=== PATIENT | female | born 1935 | race Caucasian/White ===

== ENCOUNTER → 2016-11-18 | Outpatient (CLI) | payer MEDICARE, OTHER ==
--- NOTE | 2016-11-18 15:57 | US ---
EXAMINATION TYPE: US venous doppler duplex LE RT DATE OF EXAM: 11/18/2016 3:42 PM COMPARISON: NONE CLINICAL HISTORY: I80.9 Phlebitis and thrombophlebitis of right leg. Swelling in right leg for months , no h/o dvt SIDE PERFORMED: Right TECHNIQUE: The lower extremity deep venous system is examined utilizing real time linear array sonog payton with graded compression, doppler sonography and color-flow sonography. VESSELS IMAGED: External Iliac Vein (EIV) Common Femoral Vein Deep Femoral Vein Greater Saphenous Vein * Femoral Vein Popliteal Vein Small Saphenous Vein * Proximal Calf Veins (* superficial vessels) Right Leg: Appears negative for DVT Grayscale, color doppler, spectral doppler imaging performed of the deep veins of the lower extremiti es. There is normal flow, compressibility, vascular waveforms bilaterally. IMPRESSION: No ultrasound evidence for acute DVT in the right lower extremity.
== END | disposition home or self-care (01) ==
LOC: RADUSMAIN 15:22
PROVIDERS: ATTEND Physical Medicine & Rehabilitation
DX: M54.5 Low back pain (principal); M79.669 Pain in unspecified lower leg; I80.9 Phlebitis and thrombophlebitis of unspecified site

== ENCOUNTER 2018-12-10 10:20 | Day surgery (SDC) | payer MEDICARE, OTHER ==
[2018-12-07 18:08] VITALS: BMI 21.9
[~2018-12-10 10:20] MED LIST: HYDROmorphone 0.5 MG/0.5 ML SYRINGE IVP PRN; LACTATED RINGERS 1,000 ML IV SCH; MIDAZOLAM 2 MG/2 ML VIAL IV PRN; ONDANSETRON 4 MG/2 ML VIAL IVP ONE; ceFAZolin IN SWFI 2 GM/20 ML SYRINGE IVP ONE
[2018-12-10] MEDS ORDERED: LIDOCAINE 1% 20 ML VIAL (10MG/ML) FOR IV START INTRADERMA ONE ×2 (10:55→11:01)
[2018-12-10] MEDS ORDERED: fentaNYL (PF) 50 MCG/ML 2 ML AMP IV ONE (11:00)
[2018-12-10] MEDS ORDERED: PROPOFOL 10 MG/ML 20 ML VIAL IV ONE (11:54)
[2018-12-10] MEDS ORDERED: ePHEDrine SULFATE/0.9% NACL/PF 50 MG/5 ML SYRINGE IV ONE (11:54)
[2018-12-10] MEDS ORDERED: PHENYLEPHRINE-0.9% NACL SYG 1 MG/10 ML SYRINGE ONE (11:54)
[2018-12-10] MEDS ORDERED: LIDOCAINE 1% INJ 10MG/ML (20 ML MDV) ONE (11:54)
[2018-12-10] MEDS ORDERED: fentaNYL (PF) 50 MCG/ML 2 ML AMP ONE (11:54)
--- NOTE | 2018-12-10 13:15 | P.ONQ ---
Anesthesiology Proc Note - PNB - Peripheral Nerve Block Performed Right Supraclavicular Single Procedure Start Time: 11:00 Procedure Stop Time: 11:05 Indication: Acute Post-Operative Pain Sedation Type: Sedate with meaningful contact maintained Preparation: Sterile Dressing Position: Supine Catheter: None Needle Types: On-Q Needle Size: 50mm (2") Needle Gauge: 21 Technique: Ultrasound Injectate: 0.5% Ropivacaine (see comment for volume) (ml)
[2018-12-10] MEDS ORDERED: BUPIVACAINE (PF) 0.5% 30 ML VIAL SQ ONE (13:45)
[2018-12-10] MEDS ORDERED: LIDOCAINE 1%-EPI 1:100,000 20 ML VIAL SQ ONE (13:45)
--- NOTE | 2018-12-10 13:59 | FL ---
Fluoroscopy INDICATION: Pain FINDINGS: Fluoroscopy time: 17 seconds. Images obtained: 5. IMPRESSIONS: 1. Documentation of fluoroscopy.
[2018-12-10 14:23] VITALS: TEMP 99
[2018-12-10 14:49] VITALS: RESP 18
[2018-12-10 15:19] VITALS: BP 127/76; PULSE 91
--- NOTE | 2018-12-10 18:30 | P.OP ---
Date of Procedure: 12/10/18 Preoperative Diagnosis: Displaced right distal radius fracture Postoperative Diagnosis: Displaced right distal radius fracture Procedure(s) Performed: Open reduction and internal fixation of displaced, intra-articular right distal radius fracture (3 parts) Implants: Acumed Acu-Loc2 locking volar distal radius plate, narrow left with locking and cortical screws Anesthesia: GETA, regional, local Surgeon: Josh Hemphill Housing Officer #1: Joana Brown Estimated Blood Loss (ml): 3 Pathology: none sent Condition: stable Disposition: PACU Indications for Procedure: The patient is a 83-year-old female who sustained a displaced distal radius fracture. Treatment options (and associated risks and benefits) were discussed in the office. Surgical treatment was recommended. In preop, the patient denied any additional questions or concerns and wished to proceed with surgery. Consent forms were signed. The operative site was confirmed and marked. Description of Procedure: The patient was administered a regional nerve block by the anesthesia team then brought to the operating suite. The patient was positioned supine with the operative limb on an arm board. All bony prominences were well padded. An esthesia was administered uneventfully. Prophylactic IV antibiotics were administered. A tourniquet was placed on the right arm which was then prepped and draped in standard, sterile fashion. A timeout was performed which confirmed the patient, the operative side, the site and the procedure to be performed. All team members expressed agreement. The limb was exsanguinated with an Esmarch and the tourniquet was inflated. A standard volar FCR approach was utilized. The skin was incised sharply and the subcutaneous tissue were spread, coagulating superficial vessels as needed. The FCR sheath was incised and the tendon was mobilized. The radial artery was identified and protected throughout the case. Blunt dissection was used and the pronator quadratus was identified. This was sharply released along its radial border and & elevated ulnarly. The fracture site was identified. There was a transverse fracture across the metaphysis. There was a separate intra-articular fracture extending into the lunate fossa and comprising a large portion of the volar ulnar corner of the radiocarpal joint. A manual reduction was performed and good provisional alignment was confirmed on orthogonal imaging. The plate was selected, based on the patients anatomy and fracture pattern, and was positioned on the volar radius. Using the plate as a reduction tool, the fracture was re-reduced and held in position. It was provisionally pinned in place with K-wires and its position was confirmed on imaging. A cortical screw was drilled, measured and inserted into the oblong hole of the shaft. Locking screws were drilled, measured and inserted distally, confirming length and trajectory with fluoroscopy. The provisional K-wires were removed. An additional cortical screw was drilled and inserted to further secure the plate to the metaphysis. Final x-rays were obtained which revealed satisfactory reduction of the fracture. A 20-degree inclined lateral view was obtained to confirm extra-articular screw placement. The wrist was then ranged under live fluoroscopy - no motion of the fracture fragments or fixation construct was appreciated. The tourniquet was released and hemostasis was obtained with electrocautery. The wound was thoroughly irrigated with normal saline. The pronator was repaired with interrupted 3-0 Vicryl sutures. The incision was closed with 4-0 nylon suture. Local anesthetic with epinephrine was injected into the perioperative subcutaneous tissues for adjunctive postoperative pain control and hemostasis. A sterile dressing was applied followed by a resting volar splint. All sponge, needle and instrument counts were correct at the end of the case. The patient tolerated the procedure well and was taken to the recovery room in stable condition.
== END 2018-12-10 15:43 | disposition home or self-care (01) ==
LOC: OR 10:20
PROVIDERS: ATTEND Orthopaedic Surgery
DX: S52.591A Other fractures of lower end of right radius, initial encounter for closed fracture (principal); I25.10 Atherosclerotic heart disease of native coronary artery without angina pectoris; I25.2 Old myocardial infarction; I12.9 Hypertensive chronic kidney disease with stage 1 through stage 4 chronic kidney disease, or unspecified chronic kidney disease; N18.3 Chronic kidney disease, stage 3 (moderate); D63.1 Anemia in chronic kidney disease; E07.9 Disorder of thyroid, unspecified; I34.0 Nonrheumatic mitral (valve) insufficiency; E78.2 Mixed hyperlipidemia; Z85.53 Personal history of malignant neoplasm of renal pelvis; Z85.3 Personal history of malignant neoplasm of breast; Z95.5 Presence of coronary angioplasty implant and graft; W01.0XXA Fall on same level from slipping, tripping and stumbling without subsequent striking against object, initial encounter; Y93.H2 Activity, gardening and landscaping; Y92.89 Other specified places as the place of occurrence of the external cause; Z79.891 Long term (current) use of opiate analgesic; Z79.899 Other long term (current) drug therapy; Z79.890 Hormone replacement therapy; Y99.8 Other external cause status; Z90.5 Acquired absence of kidney; Z91.040 Latex allergy status; Z79.82 Long term (current) use of aspirin; Z88.5 Allergy status to narcotic agent; Z88.8 Allergy status to other drugs, medicaments and biological substances
CPT/HCPCS: 84132; 73100; 25609; 64415; C1713; J2405; J2001; J3010; J2370; J2704; J0690

== ENCOUNTER 2019-03-03 05:52 | Inpatient (IN) | payer MEDICARE, OTHER ==
[2019-02-28 16:12] VITALS: BMI 22.8
[2019-03-03] MEDS ORDERED: NITROGLYCERIN SL TABS 0.4 MG TAB SUBLINGUAL PRN (06:25)
[2019-03-03] MEDS ORDERED: ALPRAZolam 0.5 MG TAB PO PRN (06:25)
[2019-03-03] MEDS ORDERED: ASPIRIN 325 MG TAB PO STA (06:25)
[2019-03-03] MEDS ORDERED: CLOPIDOGREL 75 MG TAB PO STA (06:25)
[2019-03-03] MEDS ORDERED: ALPRAZolam 0.25 MG TAB PO PRN (06:25)
[2019-03-03] MEDS ORDERED: SODIUM CHLORIDE 0.9% 1,000 ML in EMPTY BAG 1 BAG IV ONE (06:25)
[2019-03-03 07:10] VITALS: RESP 18; TEMP 98.2
[2019-03-03] MEDS ORDERED: LIDOCAINE 1% INJ 10MG/ML (20 ML MDV) SQ ONE (09:59)
[2019-03-03] MEDS ORDERED: IOPAMIDOL-250 100ML BTL INTRAARTER ONE (10:48)
[2019-03-03] MEDS ORDERED: SODIUM CHLORIDE 0.9% 1,000 ML IV SCH (11:00)
--- NOTE | 2019-03-03 11:16 | AN ---
ANGIOGRAPHY REPORT DATE OF SERVICE: March 03, 2019 PERFORMING PHYSICIAN: Dony Clark MD, playground supervisor. PROCEDURE PERFORMED: 1. An aortic arch angiogram. 2. Bilateral carotid angiogram. 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 She was brought today to undergo right carotid stenting. APPROACH: Right common femoral artery. COMPLICATION: None. LEVEL OF SEDATION: Moderate with sedation length of 42 minutes. PROCEDURE DESCRIPTION: After obtaining an informed consent, the patient was brought to the cardiac laboratory technician. The right common femoral artery was cannulated using micropuncture technique, the micropuncture wire passed easily then I placed a 5-Indonesian sheath. I did an aortic arch angiogram using 5-Indonesian pigtail catheter. Bilateral carotid angiogram was performed using catheter. The procedure was completed without any complication. SELECTIVE PERIPHERAL ANGIOGRAM: 1. The aorta is a type 2 to type 3 aortic arch. It is calcified with mild disease only. No dissection. No aneurysmal formation. 2. The right carotid system: The right common carotid artery appeared to be angiographically normal. The right external carotid artery is patent. The ostial of the right internal carotid artery appeared to have a plaque in the range of 50% to 60% only. 3. The left carotid system: The left common carotid artery appeared to be angiographically normal. The left external carotid artery appeared to be patent and the left external carotid artery appeared to have a plaque in the range of 50% to 60%. CONCLUSION: 1. Type 2 aortic arch. 2. Intermediate to severe disease involving the internal carotid artery bilaterally. POSTPROCEDURE MANAGEMENT: 1. Given the above anatomy, and the absence of any high-grade stenosis, I did recommend maximized medical treatment and follow up with serial ultrasound. 2. The patient is going to be discharged home. MMODL / IJN: [id number] /
--- NOTE | 2019-03-03 11:29 | IR ---
EXAMINATION TYPE: IR angio carotid cereb BILAT DATE OF EXAM: 03/03/2019 COMPARISON: NONE HISTORY: Fluoroscopy time. Fluoroscopy was provided to the referring clinician. 16.65 minutes of fluoroscopy provided.
[2019-03-03 15:58] VITALS: BP 139/67; PULSE 52
== END 2019-03-03 16:05 | disposition home or self-care (01) | DRG 68 ==
LOC: 2ORMAIN 05:52
PROVIDERS: ADMIT Internal Medicine Interventional Cardiology; ATTEND Internal Medicine Interventional Cardiology
PROC: B31 Imaging, Upper Arteries, Fluoroscopy (ICD-10-PCS; 2019-03-03)
PROC: B31 Imaging, Upper Arteries, Fluoroscopy (ICD-10-PCS; 2019-03-03)
PROC: B3101ZZ Fluoroscopy of Thoracic Aorta using Low Osmolar Contrast (ICD-10-PCS; 2019-03-03)
PROC: B31 Imaging, Upper Arteries, Fluoroscopy (ICD-10-PCS; principal; 2019-03-03 09:28)
DX: I65.23 Occlusion and stenosis of bilateral carotid arteries (principal); I10 Essential (primary) hypertension; I25.10 Atherosclerotic heart disease of native coronary artery without angina pectoris; E87.5 Hyperkalemia; Z91.040 Latex allergy status; Z79.890 Hormone replacement therapy; Z79.899 Other long term (current) drug therapy; I70.0 Atherosclerosis of aorta; Z86.73 Personal history of transient ischemic attack (TIA), and cerebral infarction without residual deficits

== ENCOUNTER → 2019-08-08 | Day surgery (SDC) | payer MEDICARE, OTHER ==
[2019-08-03 15:38] VITALS: BMI 23.8
[~2019-08-08] MED LIST changes: +ACETAMINOPHEN TAB 500 MG TAB PO ONE; +ACETAMINOPHEN TAB 500 MG TAB PO STA; +ALPRAZolam 0.25 MG TAB PO PRN; +ASPIRIN 325 MG TAB PO STA; -HYDROmorphone 0.5 MG/0.5 ML SYRINGE IVP PRN; +IOPAMIDOL-250 100ML BTL INTRAARTER ONE; -LACTATED RINGERS 1,000 ML IV SCH; +LIDOCAINE 1% INJ 10MG/ML (20 ML MDV) SQ ONE; +MIDAZOLAM 2 MG/2 ML VIAL IV ONE; -MIDAZOLAM 2 MG/2 ML VIAL IV PRN; -ONDANSETRON 4 MG/2 ML VIAL IVP ONE; +SODIUM CHLORIDE 0.9% 1,000 ML IV SCH; +SODIUM CHLORIDE 0.9% 1,000 ML in EMPTY BAG 1 BAG IV ONE; -ceFAZolin IN SWFI 2 GM/20 ML SYRINGE IVP ONE; +traMADol 50 MG TAB PO STA
[2019-08-08 10:43] VITALS: RESP 16; TEMP 97.6
--- NOTE | 2019-08-08 16:16 | IR ---
Fluoroscopy HISTORY: Pain in left foot 1.8 minutes fluoroscopy time supplied to the referring clinician. 12 intraoperative C-arm images doc ument the procedure. See dictated report from cardiology.
[2019-08-08 18:14] VITALS: BP 106/64; PULSE 64
--- NOTE | 2019-08-08 23:39 | AN ---
ANGIOGRAPHY REPORT AORTOGRAM WITH RUNOFF: DATE OF SERVICE: 08/08/2019 PERFORMING PHYSICIAN: Dony Clark MD. PROCEDURES PERFORMED: 1. Abdominal aortogram. 2. Bilateral lower extremity runoff. INDICATION: This is a very pleasant 83-year-old female patient who is in good physical shape who was experiencing bilateral lower extremity intermittent claudication and underwent a duplex study which revealed severe bilateral femoral-popliteal disease. She was brought today to undergo an aortogram with runoff. APPROACH: Right common femoral artery. COMPLICATIONS: None. LEVEL OF SEDATION: Moderate, with sedation length of 15 minutes. PROCEDURE DESCRIPTION: After obtaining informed consent, the patient was brought to the cardiac laborer powerhouse. The right common femoral artery was cannulated using micropuncture technique. The micropuncture wire passed easily. Then I placed a 6-Greek sheath in the right common femoral artery. After that, I did place a 5-Greek sheath in the right common femoral artery. After that I did perform an aortogram with runoff using a 5-Greek pigtail catheter. The catheter was initially placed at the level of the renal arteries and it was pulled into above the bifurcation of the aorta to right and left common iliac arteries. The procedure was completed without any complication. SELECTIVE PERIPHERAL ANGIOGRAM: 1. The aorta appeared to be calcified with mild disease only. 2. Common iliac arteries: Both are patent. 3. External iliac arteries: Both are patent. 4. Common femoral arteries: Both are patent. 5. Profundae: Both are patent. 6. Superficial femoral arteries: The right SFA has mild disease only and the left SFA has a tight lesion. 7. Popliteals: Both popliteals appeared to be angiographically normal. 8. Below the knee: There is 3-vessel runoff below the knee bilaterally. CONCLUSION: 1. Mild aortoiliac disease. 2. 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 3. Three-vessel runoff below the knee bilaterally. POST-PROCEDURE MANAGEMENT: The patient will be scheduled to have RHIC SYSTEMS SAFETY ENGINEER of the left SFA. MMODL / IJN: [id number] /
== END ==
LOC: CATHCVL 09:31
PROVIDERS: ATTEND Internal Medicine Interventional Cardiology
DX: I70.212 Atherosclerosis of native arteries of extremities with intermittent claudication, left leg (principal); I70.0 Atherosclerosis of aorta; I65.23 Occlusion and stenosis of bilateral carotid arteries; I25.10 Atherosclerotic heart disease of native coronary artery without angina pectoris; I10 Essential (primary) hypertension; E78.5 Hyperlipidemia, unspecified; Z95.5 Presence of coronary angioplasty implant and graft; Z79.82 Long term (current) use of aspirin; Z79.3 Long term (current) use of hormonal contraceptives; Z79.899 Other long term (current) drug therapy; Z91.09 Other allergy status, other than to drugs and biological substances; Z82.49 Family history of ischemic heart disease and other diseases of the circulatory system
CPT/HCPCS: 36200; 75625; 75716; C1894; C1769 ×3; J2250; J2001; Q9966

== ENCOUNTER 2019-09-14 06:41 | Day surgery (SDC) | payer MEDICARE, OTHER ==
[2019-09-12 10:22] VITALS: BMI 23.8
[~2019-09-14 06:41] MED LIST changes: -ACETAMINOPHEN TAB 500 MG TAB PO ONE; -ACETAMINOPHEN TAB 500 MG TAB PO STA; -ALPRAZolam 0.25 MG TAB PO PRN; -IOPAMIDOL-250 100ML BTL INTRAARTER ONE; -LIDOCAINE 1% INJ 10MG/ML (20 ML MDV) SQ ONE; -MIDAZOLAM 2 MG/2 ML VIAL IV ONE; -SODIUM CHLORIDE 0.9% 1,000 ML IV SCH; -traMADol 50 MG TAB PO STA
[2019-09-14] MEDS ORDERED: SODIUM CHLORIDE 0.9% 1,000 ML IV ONE (07:00)
[2019-09-14] MEDS ORDERED: LIDOCAINE 1% INJ 10MG/ML (20 ML MDV) SQ ONE (10:18)
[2019-09-14] MEDS ORDERED: MIDAZOLAM 2 MG/2 ML VIAL IV ONE (10:23)
[2019-09-14] MEDS ORDERED: HEPARIN SODIUM 1,000 UN/ML (10ML VL) IV ONE (10:23)
[2019-09-14] MEDS ORDERED: NITROGLYCERIN 1000MCG/10ML SYRINGE INTRAARTER ONE (10:52)
[2019-09-14] MEDS ORDERED: niCARdipine Syringe (1,000 mcg/10 mL) INTRAARTER ONE (10:52)
[2019-09-14] MEDS ORDERED: IOPAMIDOL-250 100ML BTL INTRAARTER ONE (10:53)
[2019-09-14] MEDS ORDERED: CLOPIDOGREL 75 MG TAB PO ONE (10:55)
[2019-09-14] MEDS ORDERED: ACETAMINOPHEN TAB 500 MG TAB PO PRN (11:00)
[2019-09-14] MEDS ORDERED: SODIUM CHLORIDE 0.9% 1,000 ML in EMPTY BAG 1 BAG IV SCH (11:15)
--- NOTE | 2019-09-14 11:25 | AN ---
ANGIOGRAPHY REPORT DATE OF SERVICE: 09/14/2019 PERFORMING PHYSICIAN: Dony Clark MD. PROCEDURE PERFORMED: 1. Left lower extremity angiogram. 2. Intravascular ultrasound IVUS of the left SFA. 3. An atherectomy of the left SFA using the TurboHawk device. 4. Successful balloon angioplasty of the left SFA using 5 mm x 200 mm Inpact drug- coated balloon with an excellent angiographic results and reduction of stenosis from 99% to 0%. 5. Right common femoral artery angiogram. INDICATION: This is an 83-year-old female patient with hypertension and dyslipidemia and diabetes as well as coronary artery disease who was experiencing left leg intermittent claudication. She underwent an angiogram which revealed severe disease involving the left SFA and she was brought today to undergo a NETWORK LIAISON of the left SFA. APPROACH: Right common femoral artery. COMPLICATION: None. LEVEL OF SEDATION: Moderate with sedation length of 56 minutes. PROCEDURE DESCRIPTION: After obtaining an informed consent, the patient was brought to the cardiac labeling associate. The right common femoral artery was cannulated using micropuncture technique under ultrasound guidance. The micropuncture wire passed easily, then I placed a 6-Nepalese sheath 11 cm at the right common femoral artery. After that, I did select the left SFA using 0.035 Flushing Advantage wire with the backup support of 5-Nepalese Rim catheter. After that I did exchange my 11 cm 6-Nepalese sheath into 70 cm 6-Nepalese Raabe sheath using 0.035 Flushing Advantage wire. The tip of the Raabe sheath was positioned at the proximal left SFA. I did leave lower extremity angiogram which revealed 2 vessel runoff below the knee with extremely calcified left SFA and severe disease involving the SFA in a diffuse pattern. After that, I did wire the left SFA using 0.[address] wire. I did intravascular ultrasound which revealed a diameter of 5 mm. After that, I did balloon atherectomy using the TurboHawk device. Then I did balloon angioplasty initially using 5 mm chocolate balloon and then 5 mm Inpact drug-coated balloon. The following angiogram showed excellent angiographic results and the procedure was completed without any complication. After that, a long 70 cm sheath was exchanged into 11 cm 6-Nepalese sheath using 0.035 Flushing Advantage wire. The procedure was completed without any complication. After that, I did selective right common femoral artery angiogram with injection through the sheath. POSTPROCEDURE MANAGEMENT: 1. Dual anti-platelet therapy. 2. Risk factor modifications. 3. Follow up with the patient. MMODL / IJN: [id number] /
[2019-09-14] MEDS: traMADol 50 MG TAB PO SCH ×2 (12:18→20:54)
--- NOTE | 2019-09-14 13:57 | IR ---
Fluoroscopy HISTORY: Pain in left leg 9.6 minutes fluoroscopy time supplied to the referring clinician. 438 intraoperative C-arm images do cument the procedure. See dictated report from cardiology.
[2019-09-14 14:31] VITALS: RESP 16
[2019-09-14] MEDS ORDERED: LISINOPRIL 20 MG TAB PO SCH (18:30)
[2019-09-14] MEDS ORDERED: amLODIPine 10 MG TAB PO SCH (18:30)
[2019-09-14] MEDS ORDERED: NON FORMULARY DRUG (Glucosam/Chon-Msm1/C/Mang/Bosw [Glucosamine-Chondroitin Tablet] 1 TAB) PO SCH (21:00)
[2019-09-14] MEDS ORDERED: CALCIUM CARB-VIT D 500MG-200UN 1 EACH TAB PO SCH (21:00)
[2019-09-14] MEDS ORDERED: NON FORMULARY DRUG (Ubidecarenone [Co Q-10] 100 MG) PO SCH (21:00)
[2019-09-14] MEDS ORDERED: ATORVASTATIN 40 MG TAB PO SCH (21:00)
[2019-09-15 06:16] LABS: Basophils % (A) 0 %; Eosinophils # (A) 0.1 k/uL (0-0.7); Eosinophils % (A) 1 %; HGB 10.6 gm/dL (11.4-16.0); Lymphocytes # (A) 1.8 k/uL (1.0-4.8); Lymphocytes % (A) 22 %; MCH 27.5 pg (25.0-35.0); MCHC 31.2 g/dL (31.0-37.0); Mean Platelet Volume 7.1; Monocytes # (A) 0.5 k/uL (0-1.0); Monocytes % (A) 6 %; Neutrophils # (A) 5.7 k/uL (1.3-7.7); Neutrophils % (A) 69 %; Platelet Count 359 k/uL (150-450); RBC 3.86 m/uL (3.80-5.40); RDW 14.3 % (11.5-15.5); WBC 8.3 k/uL (3.8-10.6)
[2019-09-15 06:19] LABS: Calcium 9.1 mg/dL (8.4-10.2); Potassium 3.6 mmol/L (3.5-5.1)
[2019-09-15] MEDS ORDERED: LEVOTHYROXINE 50 MCG TAB PO SCH (06:30)
[2019-09-15] MEDS: traMADol 50 MG TAB PO SCH (08:48)
[2019-09-15] MEDS ORDERED: MULTIVITAMINS, THERA 1 EACH TAB PO SCH (09:00)
[2019-09-15] MEDS ORDERED: CLOPIDOGREL 75 MG TAB PO SCH (09:00)
[2019-09-15] MEDS ORDERED: HYDROCHLOROTHIAZIDE 25 MG TAB PO SCH (09:00)
[2019-09-15] MEDS ORDERED: NON FORMULARY DRUG (Vitamin B Complex [Vitamin B Complex] 1 CAP) PO SCH (09:00)
[2019-09-15] MEDS ORDERED: ASCORBIC ACID 500 MG TAB PO SCH (09:00)
[2019-09-15] MEDS ORDERED: FERROUS SULFATE 325 MG TAB PO SCH (09:00)
[2019-09-15] MEDS ORDERED: NON FORMULARY DRUG (Biotin [Biotin] 10,000 MCG) PO SCH (09:00)
[2019-09-15] MEDS ORDERED: ASPIRIN 81 MG PO SCH (09:00)
[2019-09-15 09:38] VITALS: BP 142/66; PULSE 61; TEMP 97.7
--- NOTE | 2019-09-15 12:22 | P.DS ---
Providers Date of admission: 09/14/2019 Attending physician: Dony Clark Primary care physician: Colleen Lozano [facility] Course: This is a pleasant 83-year-old female patient was underwent yesterday successful balloon angioplasty of the left SFA. She was seen this morning. The right groin is soft and nontender and without any bruises. The patient is going to be discharged home and I'll follow-up with the patient next week in the office. Patient Condition at Discharge: Stable Plan - Discharge Summary Discharge Rx Participant: Yes New Discharge Prescriptions: New Clopidogrel [Plavix] 75 mg PO DAILY #30 tab Continue Biotin 10,000 mcg PO DAILY Ubidecarenone [Co Q-10] 100 mg PO BID Ferrous Sulfate [Iron (65 MG Elemental)] 325 mg PO DAILY Glucosam/Theodore-Msm1/C/Benjamín/Bosw [Glucosamine-Chondroitin Tablet] 1 tab PO BID Rosuvastatin Calcium [Crestor] 20 mg PO HS Levothyroxine Sodium [Synthroid] 50 mcg PO DAILY Hydrochlorothiazide [Hydrodiuril] 25 mg PO DAILY amLODIPine [Norvasc] 10 mg PO PC-SUPPER Lisinopril 40 mg PO PC-SUPPER traMADol HCL [Ultram] 50 mg PO BID Vitamin B Complex 1 cap PO DAILY Aspirin 81 mg PO DAILY Multivitamins, Thera [Multivitamin (formulary)] 1 tab PO DAILY Acetaminophen [Tylenol] 500 mg PO DAILY PRN PRN Reason: Pain Ascorbic Acid [Vitamin C] 500 mg PO DAILY Calcium Carbonate/Vitamin D3 [Calcium 500-Vit D3 200 Tablet] 1 each PO HS Discharge Medication List Biotin 10,000 mcg PO DAILY 12/07/18 [History] Ferrous Sulfate [Iron (65 MG Elemental)] 325 mg PO DAILY 12/07/18 [History] Glucosam/Theodore-Msm1/C/Benjmaín/Bosw [Glucosamine-Chondroitin Tablet] 1 tab PO BID 12/07/18 [History] Hydrochlorothiazide [Hydrodiuril] 25 mg PO DAILY 12/07/18 [History] Levothyroxine Sodium [Synthroid] 50 mcg PO DAILY 12/07/18 [History] Lisinopril 40 mg PO PC-SUPPER 12/07/18 [History] Rosuvastatin Calcium [Crestor] 20 mg PO HS 12/07/18 [History] Ubidecarenone [Co Q-10] 100 mg PO BID 12/07/18 [History] amLODIPine [Norvasc] 10 mg PO PC-SUPPER 12/07/18 [History] Vitamin B Complex 1 cap PO DAILY 02/28/19 [History] traMADol HCL [Ultram] 50 mg PO BID 02/28/19 [History] Aspirin 81 mg PO DAILY 03/03/19 [History] Acetaminophen [Tylenol] 500 mg PO DAILY PRN 08/03/19 [History] Ascorbic Acid [Vitamin C] 500 mg PO DAILY 08/03/19 [History] Calcium Carbonate/Vitamin D3 [Calcium 500-Vit D3 200 Tablet] 1 each PO HS 08/03/19 [History] Multivitamins, Thera [Multivitamin (formulary)] 1 tab PO DAILY 08/03/19 [History] Clopidogrel [Plavix] 75 mg PO DAILY #30 tab 09/15/19 [Rx] Follow up Appointment(s)/Referral(s): Dony Clark MD [STAFF PHYSICIAN] - 09/22/19 11:30 am Patient Instructions/Handouts: Heart Healthy Diet (DC), Peripheral Vascular Angioplasty (DC), Safe Use of Antiplatelet Medication (DC) Activity/Diet/Wound Care/Special Instructions: 1. Support your puncture site by applying firm, steady pressure whenever you cough, laugh, sneeze or bear down to have a bowel movement (2-day restriction). 2. Watch for any excessive bruising, active bleeding, a firm knot forming under your skin, extreme tenderness and signs of infection (redness, swelling, fever). 3. Shower daily, do not soak puncture in a tub bath, jacuzzi, pool, stein etc. for 1 week. This is to prevent risk of infection. 4. Drink plenty of fluids the day of and day after your procedure to flush contrast dye out of your kidneys. 5. Take all medications as directed. Never stop any new medication without your physicians OK. 6. No driving for 2 days after procedure. 7. 10- pound weight lifting restriction for 1 week. 8. Low sodium/low fat diet. 9. Activity limited until follow up appointment with your sash maker. In case of any problems, please call [facility] [place] @ [phone]. Discharge Disposition: HOME SELF-CARE
== END 2019-09-15 11:42 | disposition home or self-care (01) ==
LOC: CATHCVL 06:41 → 3SCARD 12:58 → CATHCVL 09-15 11:42
PROVIDERS: ATTEND Internal Medicine Interventional Cardiology
DX: E11.51 Type 2 diabetes mellitus with diabetic peripheral angiopathy without gangrene (principal); I70.212 Atherosclerosis of native arteries of extremities with intermittent claudication, left leg; I10 Essential (primary) hypertension; E78.5 Hyperlipidemia, unspecified; I25.10 Atherosclerotic heart disease of native coronary artery without angina pectoris; I65.23 Occlusion and stenosis of bilateral carotid arteries; Z95.5 Presence of coronary angioplasty implant and graft; Z82.49 Family history of ischemic heart disease and other diseases of the circulatory system; Z79.82 Long term (current) use of aspirin; Z79.890 Hormone replacement therapy; Z79.899 Other long term (current) drug therapy; Z91.09 Other allergy status, other than to drugs and biological substances
CPT/HCPCS: 37225; 85347; 37252; 80048; 85025; C1894; C1769 ×4; C1714; C1753; C1725; C2623; J2250; J2001; J1644; Q9966

== ENCOUNTER → 2021-06-25 | Outpatient (CLI) | payer MEDICARE, OTHER ==
--- NOTE | 2021-06-25 13:37 | US ---
EXAMINATION TYPE: US venous doppler duplex LE BI DATE OF EXAM: 06/25/2021 1:06 PM COMPARISON: Rt leg 11/18/2016 CLINICAL HISTORY: I80.9 Phlebitis and thrombophlebitis of unspecified. Pain and swelling. SIDE PERFORMED: Bilateral TECHNIQUE: The lower extremity deep venous system is examined utilizing real time linear array sonog payton with graded compression, doppler sonography and color-flow sonography. VESSELS IMAGED: Common Femoral Vein Deep Femoral Vein Greater Saphenous Vein * Femoral Vein Popliteal Vein Small Saphenous Vein * Proximal Calf Veins (* superficial vessels) Posterior Tibial veins* Peroneal veins Plaque in bilateral arteries incidentally noted. Right Leg: Negative for DVT Left Leg: Negative for DVT Grayscale, color doppler, spectral doppler imaging performed of the deep veins of the bilateral lower extremities. There is normal flow, compressibility, vascular waveforms. IMPRESSION: No ultrasound evidence for acute DVT in either lower extremity.
== END | disposition home or self-care (01) ==
LOC: RADUSWWP 12:35
PROVIDERS: ATTEND Orthopaedic Surgery
DX: R22.43 Localized swelling, mass and lump, lower limb, bilateral (principal); M79.604 Pain in right leg; M79.605 Pain in left leg
CPT/HCPCS: 93970